=== PATIENT | male | born 1970 ===

== ENCOUNTER 2024-05-04 16:23 | Outpatient (REF) | payer MEDICAID, SELFPAY ==
[2024-05-04 16:04] LABS: Abs Immature Grans 0.01 10^3/uL (0.0-0.06); Absolute Basophil Count 0.07 10^3/uL (0.0-0.2); Absolute Eosinophil Count 0.25 10^3/uL (0.0-0.7); Absolute Lymphocyte Count 1.88 10^3/uL (1.2-3.4); Absolute Monocyte Count 0.57 10^3/uL (0.1-0.8); Absolute Neutrophil Count 5.39 10^3/uL (1.2-6.7); Basophils % 0.9 %; Eosinophils % 3.1 %; HCT 49.5 % (40.0-50.0); HGB 17.2 g/dL (13.5-17.5); Immature Grans % 0.1 %; MCH 32.5 pg (27.0-33.0); MCHC 34.7 % (32.0-36.0); MCV 93 fL (80-95); MPV 9.4 fL (8.0-11.0); Neutrophils % 65.9 %; Platelet Count 319 10^3/uL (130-400); RDW 11.8 % (11.8-14.1); RDW-SD 40.5 fL; WBC 8.17 10^3/uL (4.4-10.8)
[2024-05-08 09:08] LABS: IgE 37 IU/mL (<158)
== END 2024-05-04 16:24 | disposition home or self-care (01) ==
LOC: LBN 16:23
PROVIDERS: PCP Registered Nurse; Visit Provider Physician Assistant Surgical
DX: J44.9 Chronic obstructive pulmonary disease, unspecified (principal); F17.200 Nicotine dependence, unspecified, uncomplicated; J45.909 Unspecified asthma, uncomplicated
CPT/HCPCS: 82785; 85025

== ENCOUNTER 2025-03-25 10:00 | Outpatient (CLI) | payer OTHER, SELFPAY ==
--- NOTE | 2025-03-25 10:46 | PDOC.PAIN_ITS ---
Date of service: 03/25/25 Time of Service: 10:46 Pain Managment Procedure Note Procedure Note Procedure Note: PROCEDURE NOTE LUMBAR EPIDURAL STEROID INJECTION Date of Service: March 25, 2025 Patient:Eloy Call? Provider: Po Shah DO, MPH Eloy Gutierrez has been referred to the [facility] for a lumbar epidural steroid injection. Pre-operative diagnosis: Lumbosacral Radiculopathy ICD-10 M54.16 Post-operative diagnosis: Same Pre-Procedure Pain: VAS= 7 /10 Comments: He was previously evaluated in the office. His symptoms are unchanged. Eloy was interviewed and the medical record was reviewed.? There were no medical, pharmacologic, radiographic or other structural contraindications to attempting fluoroscopically guided Lumbar epidural steroid injection.? Risks, potential side effects, indications, and potential benefits of the procedure were reviewed with Eloy.? Questions and concerns were addressed.? After it was clear that Eloy was fully informed about the procedure, the printed consent form was signed by the patient and myself.? Eloy was placed in the prone position on the fluoroscopy table and automated blood pressure cuff and pulse oximeter applied. The skin entry point for entering/approaching the epidural space for the lumbar epidural steroid injection was marked. Following thorough chlorhexadine preparation of the skin and draping and 1% lidocaine infiltration of the skin entry point and subcutaneous tissues, an 18 gauge Touhy needle was placed and advanced under fluoroscopic guidance and with loss of resistance technique into the L5-S1 epidural space. Needle tip placement and depth were aided and confirmed by fluoroscopy. There was no paresthesia or return of blood or CSF through the needle. 1 mls of Omnipaque 240 was injected with clear epidural spread confirmed with fluoroscopy. 80 mg of Depo-Medrol was? injected. This was followed by 1 ml of preservative-free normal saline to flush the steroid out of the needle. There was no unusual discomfort expressed by Eloy. The needle was withdrawn without difficulty. (49 mls of Omnipaque was wasted) Eloy was observed and was witho ut hemodynamic, neurologic, or allergic reactions.? Fluoroscopic images were digitally archived. Eloy's vital signs were stable throughout the procedure and were as recorded in nursing records. Follow up plans and appointments were discussed with Eloy. Post procedure instruction was given as documented in nursing records and having met discharge criteria Eloy was discharged from the [facility]. COMMENTS: No apparent complications. Post-procedure pain: VAS= 0/10. Eloy to contact [facility] as needed. If at least 50% improvement in pain and/or function for at least 3 months is achieved, this procedure can be repeated. I personally performed this entire procedure. PO SHAH DO, MPH ABPMR-subspecialty board certification in Pain Medicine [facility] Coding Conscious Sedation used for procedure: No CPT Codes: Inj Spine L/S w/Imaging - [id number] ([id number] ~G) Additional Codes: Date of Service () Diagnoses: lumbar radiculopathy
[2025-03-25 11:01] VITALS: PULSE 87
[2025-03-25 11:02] VITALS: BP 184/101; PULSE 88; PULSE 89; RESP 14; O2SAT 98
[2025-03-25 11:10] VITALS: PULSE 91; PULSE 93; RESP 19; O2SAT 98
[2025-03-25 11:16] VITALS: BP 166/101; PULSE 89
--- NOTE | 2025-03-25 11:16 | DI.RAD_ITS ---
Exam(s) XR PAIN CLINIC LUMBAR SP 2V EXAM: XR PAIN CLINIC LUMBAR SP 2V CLINICAL HISTORY: DX: Lumbar Radiculopathy. TECHNIQUE: Fluoroscopy was provided for the referring physician for guidance with performing pain clinic injection procedure. COMPARISON: No exams were available for comparison FINDINGS: Please see procedure note for details. Fluoro time: 20.4 seconds RADIATION DOSE DELIVERED: Ka,r=11.1 mGy
[2025-03-25] MEDS: Omnipaque 240 MG/ML 50 ML BTL IJ (11:20)
[2025-03-25] MEDS: Epidural Tray 1 EACH MC (11:20)
[2025-03-25] MEDS: methylPREDNISolone ACETATE 40 MG/ML VIAL IJ (11:20)
== END 2025-03-25 10:01 | disposition home or self-care (01) ==
LOC: PC 10:01
PROVIDERS: PCP Registered Nurse; Visit Provider Preventive Medicine Occupational Medicine
DX: M54.16 Radiculopathy, lumbar region (principal)
CPT/HCPCS: 62323; 72100; J1010; Q9967